=== PATIENT | female | born 1935 | race Caucasian/White ===

== ENCOUNTER 2018-07-20 03:45 | Emergency (ER) | payer MEDICARE ==
[~2018-07-20] VITALS: Ht 162.6 cm; Wt 70.3 kg
[~2018-07-20 03:45] MED LIST: ALBU90OI61 INH; AZIT250 PO; BENZ100A PO; BLOOD PRESSURE MED; CALCITRATE PO; CYCL10 PO; Cyclobenzaprine5 MG PO; HYDCHLSU PO; IBUHYD; IBUHYD PO; IBUP600 PO; MECL25 PO; POTA10T PO; PRED20 PO; Percocet 5-3251 EACH PO; SULTRIDS PO; TRIHYD253B PO; Ultram50 MG PO; Valium5 MG PO
[2018-07-20] MEDS ORDERED: LOSARTAN POTASS50 MG PO (03:54)
[2018-07-20] MEDS ORDERED: ANORO ELLIPTA1 EACH INH (03:55)
[2018-07-20] MEDS ORDERED: ALBU90OI61 INH (03:55)
[2018-07-20 04:20] LABS: BASOPHILS ABSOLUTE AUTO 0.04 K/mm3 (0.00-0.23); BASOPHILS PERCENT AUTO 1 % (0-2); EOSINOPHILS ABSOLUTE AUTO 0.17 K/mm3 (0.00-0.68); EOSINOPHILS PERCENT AUTO 3 % (0-6); Hematocrit 41.7 % (33.0-51.0); IMMATURE GRAN ABSOLUTE AUTO 0.02 K/mm3 (0.00-0.10); IMMATURE GRAN PERCENT AUTO 0 % (0-1); LYMPHOCYTES ABSOLUTE AUTO 1.47 K/mm3 (0.84-5.20); LYMPHOCYTES PERCENT AUTO 26 % (21-46); MONOCYTES ABSOLUTE AUTO 0.51 K/mm3 (0.16-1.47); MONOCYTES PERCENT AUTO 9 % (4-13); Mean Corpuscular HGB 28.4 pg (26.0-34.0); Mean Corpuscular HGB Conc 31.2 g/dL (31.5-36.5); Mean Corpuscular Volume 91 fL (80-100); Mean Platelet Volume 9.3 fL (9.1-12.4); NEUTROPHILS ABSOLUTE AUTO 3.53 K/mm3 (1.96-9.15); NEUTROPHILS PERCENT AUTO 62 % (41-73); Platelet Count 237 K/mm3 (150-400); RDW Coefficient Variation 13.7 % (11.7-14.2); RDW Standard Deviation 46.2 fL (35.1-46.3); Red Blood Cell Count 4.57 M/mm3 (3.80-5.20); White Blood Cell Count 5.74 K/mm3 (4.00-11.30)
[2018-07-20 04:32] LABS: Anion Gap 3 mmol/L (6-16); Blood Urea Nitrogen 18 mg/dL (8-24); Bun/Creatinine Ratio 23.8 (12.0-20.0); CO2, Blood 30 mmol/L (21-32); Calcium, Blood 10.7 mg/dL (8.5-10.1); Chloride, Blood 109 mmol/L (98-108); Creatinine, Blood 0.76 mg/dL (0.40-1.00); Glomerular Filtration Rate >60 (60-); Glucose, Blood 88 mg/dL (70-99); Potassium, Blood 4.4 mmol/L (3.5-5.5); Sodium, Blood 142 mmol/L (136-145)
== END 2018-07-20 05:30 | disposition home or self-care (01) ==
LOC: ER 03:45
PROVIDERS: Emergency Medicine
DX: R55 Syncope and collapse (principal); Z88.0 Allergy status to penicillin; Z79.899 Other long term (current) drug therapy; I10 Essential (primary) hypertension
CPT/HCPCS: 36415; 80048; 85025; 93005; 93010; 99284-25

== ENCOUNTER 2018-11-09 06:58 | Emergency (ER) | payer OTHER, MEDICARE ==
[~2018-11-09] VITALS: Ht 162.6 cm; Wt 69.8 kg
[~2018-11-09 06:58] MED LIST changes: +ANORO ELLIPTA1 EACH INH; +LOSARTAN POTASS50 MG PO
[2018-11-09] MEDS ORDERED: TRELEGY ELLIPT1 EACH (07:13)
[2018-11-09] MEDS ORDERED: Tizanidine HCl2 MG PO (07:13)
[2018-11-09] MEDS ORDERED: Ventolin5 MG/1 ML INH (07:14)
[2018-11-09] MEDS ORDERED: ALBU4ER INH (07:14)
== END 2018-11-09 08:49 | disposition home or self-care (01) ==
LOC: ER 06:58
DX: S80.01XA Contusion of right knee, initial encounter (principal); I10 Essential (primary) hypertension; J44.9 Chronic obstructive pulmonary disease, unspecified; Z88.0 Allergy status to penicillin; W23.0XXA Caught, crushed, jammed, or pinched between moving objects, initial encounter
CPT/HCPCS: 29505; 73562-RT; 99283-25

== ENCOUNTER → 2019-02-06 | Outpatient (CLI) | payer MEDICARE ==
[~2019-02-06] MED LIST changes: +ALBU4ER INH; +TRELEGY ELLIPT1 EACH; +Tizanidine HCl2 MG PO; +Ventolin5 MG/1 ML INH
[2019-02-08 13:56] LABS: Stool Occult Bld Immuno 1 Positive (NEGATIVE)
== END | disposition home or self-care (01) ==
LOC: LAB 07:11 → LAB SHORT 07:11
PROVIDERS: Nurse Practitioner Family
DX: Z12.11 Encounter for screening for malignant neoplasm of colon (principal)
CPT/HCPCS: G0328

== ENCOUNTER 2019-05-21 12:15 | Day surgery (SDC) | payer MEDICARE ==
[~2019-05-21] VITALS: Ht 165.1 cm; Wt 63.9 kg
[~2019-05-21 12:15] MED LIST changes: +ALENDRONATE SOD70 MG PO; +ARNUITY ELLIP200 MCG INH; +CODE30 PO; +Flonase 0.05% N16 GM; +TRELEGY ELLIPT1 EACH INH
== END 2019-05-21 14:22 | disposition home or self-care (01) ==
LOC: ORSCSDS 12:15
PROVIDERS: Internal Medicine Gastroenterology
PROC: 0DBP8ZX Excision of Rectum, Via Natural or Artificial Opening Endoscopic, Diagnostic (ICD-10-PCS; principal; 2019-05-21 14:00)
PROC: 0DBK8ZX Excision of Ascending Colon, Via Natural or Artificial Opening Endoscopic, Diagnostic (ICD-10-PCS; principal; 2019-05-21 14:00)
DX: K92.1 Melena (principal); D12.2 Benign neoplasm of ascending colon; K62.1 Rectal polyp; K59.00 Constipation, unspecified; Z86.010 Personal history of colon polyps; K57.30 Diverticulosis of large intestine without perforation or abscess without bleeding; K64.8 Other hemorrhoids; Z80.0 Family history of malignant neoplasm of digestive organs; I10 Essential (primary) hypertension; G47.33 Obstructive sleep apnea (adult) (pediatric); J44.9 Chronic obstructive pulmonary disease, unspecified; Z87.891 Personal history of nicotine dependence; Z79.899 Other long term (current) drug therapy
CPT/HCPCS: 88305; J2704; J7120

== ENCOUNTER 2020-03-03 06:38 | Day surgery (SDC) | payer MEDICARE ==
[~2020-03-03] VITALS: Ht 162.6 cm; Wt 66.9 kg
[~2020-03-03 06:38] MED LIST changes: +SPIRIVA RESPIMAT4 G3 INH
[2020-03-03] MEDS ORDERED: FLUT1DIS5 INH (07:25)
== END 2020-03-03 08:42 | disposition home or self-care (01) ==
LOC: ORSCSDS 06:38
PROVIDERS: Orthopaedic Surgery
PROC: 0LN80ZZ Release Left Hand Tendon, Open Approach (ICD-10-PCS; principal; 2020-03-03 08:00)
PROC: 01N50ZZ Release Median Nerve, Open Approach (ICD-10-PCS; principal; 2020-03-03 08:00)
DX: G56.02 Carpal tunnel syndrome, left upper limb (principal); M65.30 Trigger finger, unspecified finger; I10 Essential (primary) hypertension; Z79.899 Other long term (current) drug therapy
CPT/HCPCS: J2250; J2704; J3010; J7120

== ENCOUNTER 2022-08-29 06:04 | Day surgery (SDC) | payer MEDICARE ==
[~2022-08-29] VITALS: Ht 162.6 cm; Wt 55.0 kg
[~2022-08-29 06:04] MED LIST changes: +FLUT1DIS5 INH
[2022-08-29] MEDS ORDERED: CODACE30 (07:02)
--- NOTE | 2022-08-29 07:37 | NUR ---
08/29/22 [address] DELGADO, DO NOT HAVE PT COMPLETE DUONEB UPDRAFT TREATMENT. PT COMPLETED APPROXIMATELY HALF OF THE TREATMENT.
[2022-08-29 10:47] VITALS: BP 105/57
--- NOTE | 2022-08-29 12:24 | NUR ---
08/29/22 1224 Isak Plasencia IV REMOVED INTACT. SITE WNL. PT REPORTED 9/10 SORE THROAT PRIOR TO DISCHARGE BUT DESCRIBED PAIN "TOLERABLE" AND EXPRESSED READINESS TO GO HOME. FLACC 0/10.
== END 2022-08-29 11:23 | disposition home or self-care (01) ==
LOC: ORSCSDS 06:04
PROVIDERS: Otolaryngology
PROC: 0GTM0ZZ Resection of Left Superior Parathyroid Gland, Open Approach (ICD-10-PCS; principal; 2022-08-29 07:30)
DX: D35.1 Benign neoplasm of parathyroid gland (principal); E21.0 Primary hyperparathyroidism; I10 Essential (primary) hypertension; J44.9 Chronic obstructive pulmonary disease, unspecified; Z87.891 Personal history of nicotine dependence; Z79.899 Other long term (current) drug therapy
CPT/HCPCS: 83970; 88305; 88331; 88332; J1100; J1885; J2370; J2405; J2704; J3010; J7120